=== PATIENT | female | born 1955 | race Caucasian/White ===

== ENCOUNTER → 2016-12-31 | Outpatient (CLI) | payer BC ==
[~2016-12-31] MED LIST: ESTR1TAB24 PO; LOVA40TA2 PO
--- OUTSIDE RECORDS SUMMARY | 2016-12-31 10:16 | XMS REPORT | Continuity of Care Document ---
Author Author [facility] Organization [facility] Address Unknown Phone Unavailable Allergies Active Description Code Type Severity Reaction Onset Reported/Identified Relationship to Patient Clinical Status Yes erythromycin base [id number] Drug Allergy Unknown N/V 12/05/2011 Medications Problems Date Dx Coded Attending Type Code Diagnosis Diagnosed By 12/13/2011 Ot 226 08/31/2012 Ot V12.72 08/31/2012 Ot V76.51 11/16/2014 LYNSEY ECKERT, ABDIAZIZ Russ Ot V76.12 12/02/2014 ABDIAZIZ MENON MD Ot V76.12 11/28/2015 Ot V76.12 11/28/2015 Ot V76.12 11/28/2015 Ot 241.0 11/28/2015 Ot 241.0 11/28/2015 Ot V72.63 11/28/2015 Ot V74.8 11/28/2015 Ot V72.84 11/28/2015 Ot V76.12 11/28/2015 LYNSEY ECKERT, ABDIAZIZ Russ Ot V76.12 11/28/2015 ABDIAZIZ MENON MD Ot V76.12 11/29/2015 FREDDY ECKERT, ROLLY Penaloza Ot Z12.31 12/14/2015 FREDDY ECKERT, ROLLY Penaloza Ot Z12.31 Procedures Results Encounters ACCT No. Visit Date/Time Discharge Status Pt. Type Provider Facility Loc./Unit Complaint [id number] 11/15/2014 09:09:00 2014 23:59:59 CLS Outpatient ABDIAZIZ MENON MD [facility] RAD [id number] 11/09/2013 08:38:00 2013 23:59:59 CLS Outpatient ABDIAZIZ MENON MD [facility] RAD [id number] 11/28/2015 08:50:00 ACT Outpatient ROLLY HAYES MD [facility] RAD [id number] 11/28/2015 08:50:00 Document Registration [id number] 11/02/2012 10:22:00 Document Registration [id number] 08/31/2012 06:41:00 Document Registration [id number] 08/27/2012 09:03:00 Document Registration [id number] 12/12/2011 05:58:00 Document Registration [id number] 12/05/2011 08:08:00 Document Registration [id number] 10/31/2011 10:10:00 Document Registration [id number] 09/10/2011 09:44:00 Document Registration [id number] 10/29/2010 09:21:00 Document Registration
--- NOTE | 2017-01-01 20:18 | Diagnostic Imaging Report ---
Bilateral screening mammogram The current study was also evaluated with a Computer Aided Detection (CAD) system. Indication: Screening. No current complaints stated on the questionnaire. COMPARISON: 11/28/15. FINDINGS: The breasts are composed of scattered fibroglandular densities. No mass, architectural distortion or suspicious cluster of calcifications seen. Allowing for technique and positional differences, no suspicious change is seen. IMPRESSION: No significant change. ACR BI-RADS Category 2: Benign findings. Result letter will be mailed to the patient. Note: At least 10% of breast cancer is not imaged by mammography. Dictated by: Dictated on workstation # [id number]
== END ==
LOC: RAD 10:12
PROVIDERS: ATTEND Family Medicine
DX: Z12.31 Encounter for screening mammogram for malignant neoplasm of breast (principal)
CPT/HCPCS: 77067

== ENCOUNTER → 2018-01-12 | Outpatient (CLI) | payer BC ==
--- NOTE | 2018-01-13 08:06 | Diagnostic Imaging Report ---
Digital mammogram bilateral screening. This study was compared to the prior exams of 12/31/2016, 11/28/2015 and 11/15/2014. At this time, there are no current complaints. The current study was also evaluated with a Computer Aided Detection (CAD) system. FINDINGS: There are scattered fibroglandular densities in both breasts which could obscure a lesion. Overall, there does not appear to have been any significant change when compared to the prior exam. No primary or secondary sign of malignancy is noted. IMPRESSION: There is no radiographic evidence for malignancy. ACR BI-RADS Category 1: Negative. Result letter will be mailed to the patient. Note: At least 10% of breast cancer is not imaged by mammography. Dictated by: Dictated on workstation # [id number]
== END ==
LOC: RAD 11:15
PROVIDERS: ATTEND Family Medicine
DX: Z12.31 Encounter for screening mammogram for malignant neoplasm of breast (principal)
CPT/HCPCS: 77067

== ENCOUNTER → 2018-07-22 | Outpatient (CLI) | payer BC ==
--- NOTE | 2018-07-22 14:08 | Diagnostic Imaging Report ---
PROCEDURE: US Thyroid. TECHNIQUE: Multiple real-time grayscale images were obtained of the thyroid in various projections. INDICATION: Thyroid nodules, followup. COMPARISON: Correlation is made with prior thyroid ultrasound from 01/12/2018. FINDINGS: The right lobe of the thyroid is surgically absent. Left lobe measures 4.8 x 1.5 x 1.4 cm. There are several circumscribed hypoechoic nodules within the left lobe of the thyroid. A nodule in the lower pole measures 6 mm x 3 mm x 6 mm, similar to prior exam. Second nodule mid to upper left lobe is approximately 3 mm x 4 mm. No dominant thyroid mass is seen. IMPRESSION: Subcentimeter left lobe thyroid nodules. No dominant thyroid mass is detected. Dictated by: Dictated on workstation # [id number]
== END ==
LOC: RAD 10:54
PROVIDERS: ATTEND Family Medicine
DX: E04.2 Nontoxic multinodular goiter (principal)
CPT/HCPCS: 76536

== ENCOUNTER → 2019-02-05 | Outpatient (CLI) | payer BC ==
--- NOTE | 2019-02-05 17:25 | Diagnostic Imaging Report ---
INDICATION: Routine screening. COMPARISON: Prior mammogram from 01/12/2018 and 12/31/2016. EXAMINATION: 2D and 3D bilateral screening mammography was performed with CAD. The current study was also evaluated with a Computer Aided Detection (CAD) system. FINDINGS: Scattered fibroglandular densities are identified, bilaterally. The parenchymal pattern is stable. No dominant mass or malignant appearing microcalcifications are seen. The axillae are unremarkable. IMPRESSION: No mammographic features suspicious for malignancy are identified. ACR BI-RADS Category 1: Negative. Result letter will be mailed to the patient. Note: At least 10% of breast cancer is not imaged by mammography. Dictated on workstation # [id number]
== END ==
LOC: RAD 08:03
PROVIDERS: ATTEND Family Medicine
DX: Z12.31 Encounter for screening mammogram for malignant neoplasm of breast (principal)
CPT/HCPCS: 77067

== ENCOUNTER → 2019-07-26 | Outpatient (CLI) | payer BC ==
--- NOTE | 2019-07-26 14:46 | Diagnostic Imaging Report ---
PROCEDURE: US Thyroid. TECHNIQUE: Multiple real-time grayscale images were obtained of the thyroid in various projections. INDICATION: Thyroid nodules, followup. Patient underwent right thyroidectomy in 2011. COMPARISON: Correlation is made with prior thyroid ultrasound from 07/22/2018. FINDINGS: The right thyroid lobe is surgically absent. Left lobe measures 4.7 x 1.7 x 1.5 cm. The isthmus is 4 mm in thickness. Lower pole hypoechoic nodule measures 6 mm x 5 mm, unchanged. Probable colloid cyst in the mid left lobe is seen measuring approximately 6 mm x 3 mm. Hyperechoic nodule in zcn-on-xkunc left lobe is approximately 3 mm x 4 mm, stable. No dominant mass is seen. IMPRESSION: Stable subcentimeter nodules in the left lobe of the thyroid when compared with examination one year earlier. No dominant thyroid mass is detected. Dictated by: Dictated on workstation # [id number]
== END ==
LOC: RAD 13:00
PROVIDERS: ATTEND Family Medicine
DX: E04.2 Nontoxic multinodular goiter (principal)
CPT/HCPCS: 76536

== ENCOUNTER → 2020-03-28 | Outpatient (CLI) | payer BC ==
--- NOTE | 2020-03-28 09:05 | Diagnostic Imaging Report ---
INDICATION: Postmenopausal screening for osteoporosis. COMPARISON: None FINDINGS: AP Spine L1-L4: [BMD (g/cm2): 1.221] [T-Score: 0.2] [Z-Score: 1.1] [BMD Previous: NA] [BMD % Change: NA] LT Hip Neck: [BMD (g/cm2): 0.880] [T-Score: -1.1] [Z-Score: -0.1] LT Hip Total: [BMD (g/cm2):0.899] [T-Score:-0.9] [Z-Score: -0.1] [BMD Previous: NA] [BMD % Change: NA] RT Hip Neck: [BMD (g/cm2):0.898] [T-Score:-1.0] [Z-Score:0.0] RT Hip Total: [BMD (g/cm2):0.958] [T-score:-0.4] [Z-Score:0.3] [BMD Previous:NA] [BMD % Change:NA] *Indicates significant change from prior examination based on 95% confidence level. World Health Organization criteria for BMD interpretation classify patients as Normal (T-score at or above -1.0), Osteopenic (T-score between -1.0 and -2.5) or Osteoporotic (T-score at or below -2.5). LIMITATIONS AND MODIFICATION: None. FRACTURE RISK (FRAX SCORE): The ten year probability of (%): Major Osteoporotic Fracture: [NA] Hip Fracture: [NA] IMPRESSION: 1. Normal bone mineral density. 2. Baseline examination. 3. See below National Osteoporosis Foundation guidelines on when to potentially initiate pharmacologic therapy. Based on the National Osteoporosis Foundation Guidelines, pharmacologic treatment should be initiated in any of the following, unless clinical conditions suggest otherwise: * Any patient with prior fragility fracture of the hip or vertebrae. A spine fracture indicates 5X risk for subsequent spine fracture and 2X risk for subsequent hip fracture. * Osteoporosis (T-score <-2.5). * Postmenopausal women and men age 50 and older with low bone mass/osteopenia (T-score between -1.0 and -2.5) by DXA and 10-year major osteoporotic fracture greater than 20% or a 10-year probability of hip fracture greater than 3%. These fracture risks are supplied above in the FRAX score, if applicable. * Clinician judgement and/or patient preferences may indicate treatment for people with 10-year fracture probabilities above or below these levels. Dictated by: Dictated on workstation # [id number]
--- NOTE | 2020-03-28 13:04 | Diagnostic Imaging Report ---
INDICATION: Routine screening. COMPARISON: 02/05/2019 and 01/12/2018. TECHNIQUE: 2D and 3D bilateral screening mammography was performed with CAD. FINDINGS: Both breasts are heterogeneously dense, limiting the sensitivity of mammography. The parenchymal pattern appears to be fairly stable. No discrete mass or malignant appearing microcalcifications are seen. The axillae are unremarkable. IMPRESSION: No mammographic features suspicious for malignancy are identified. ACR BI-RADS Category 1: Negative. Result letter will be mailed to the patient. Note: At least 10% of breast cancer is not imaged by mammography. Dictated by: Dictated on workstation # [id number]
== END ==
LOC: RAD 08:20
PROVIDERS: ATTEND Family Medicine
DX: Z12.31 Encounter for screening mammogram for malignant neoplasm of breast (principal); Z13.820 Encounter for screening for osteoporosis; E55.9 Vitamin D deficiency, unspecified; Z78.0 Asymptomatic menopausal state
CPT/HCPCS: 77063; 77067; 77080

== ENCOUNTER → 2021-04-04 | Outpatient (CLI) | payer BC ==
--- NOTE | 2021-04-04 14:32 | Diagnostic Imaging Report ---
Indication: Routine screening. Comparison is made with prior mammogram from 03/28/2020 and 02/05/2019. 2-D and 3-D bilateral screening mammography was performed with CAD. Scattered fibroglandular densities are identified bilaterally. The parenchymal pattern is stable. No mass or malignant appearing microcalcifications are seen. Axillae are unremarkable. IMPRESSION: BI-RADS Category 1 No mammographic features suspicious for malignancy are identified. ACR BI-RADS Category 1: Negative. Result letter will be mailed to the patient. Note: At least 10% of breast cancer is not imaged by mammography. Dictated by: Dictated on workstation # [id number]
== END ==
LOC: RAD 09:50
PROVIDERS: ATTEND Family Medicine
DX: Z12.31 Encounter for screening mammogram for malignant neoplasm of breast (principal)
CPT/HCPCS: 77063; 77067

== ENCOUNTER → 2021-08-02 | Outpatient (CLI) | payer BC ==
--- NOTE | 2021-08-02 13:16 | Diagnostic Imaging Report ---
PROCEDURE: US Thyroid. TECHNIQUE: Multiple real-time grayscale images were obtained of the thyroid in various projections. INDICATION: Thyroid nodules, follow-up. Correlation is made with prior thyroid ultrasound from 07/26/2019. The right lobe is surgically absent. Left lobe measures 5.0 x 1.4 x 1.5 cm. Several hypoechoic nodules in the left lobe are again noted. Hypoechoic nodule lower pole left lobes approximately 6 mm x 3 mm x 5 mm. Probable cystic nodule mid portion approximately 6 mm x 5 mm. The hyperechoic nodule in the upper pole is approximately 4 mm x 6 mm. No dominant mass is identified. IMPRESSION: Subcentimeter left lobe thyroid nodules, similar in appearance to the examination from 2 years earlier. No dominant thyroid mass is detected. Dictated by: Dictated on workstation # [id number]
== END ==
LOC: RAD 10:58
PROVIDERS: ATTEND Family Medicine
DX: E04.1 Nontoxic single thyroid nodule (principal)
CPT/HCPCS: 76536

== ENCOUNTER → 2022-04-09 | Outpatient (CLI) | payer BC, MEDICARE ==
--- NOTE | 2022-04-09 11:33 | Diagnostic Imaging Report ---
INDICATION: Postmenopausal screening COMPARISON: 03/28/2020 FINDINGS: AP Spine L1-L4: [BMD (g/cm2): 1.208] [T-Score: 0.1] [Z-Score: 1.3] [BMD Previous: 1.221] [BMD % Change: -1.0] LT Hip Neck: [BMD (g/cm2): 0.872] [T-Score: -1.2] [Z-Score: 0.0] LT Hip Total: [BMD (g/cm2):0.879] [T-Score:-1.0] [Z-Score: -0.1] [BMD Previous: 0.899] [BMD % Change: -2.2] RT Hip Neck: [BMD (g/cm2):0.876] [T-Score:-1.2] [Z-Score:0.0] RT Hip Total: [BMD (g/cm2):0.938] [T-score:-0.6] [Z-Score:0.3] [BMD Previous:0.958] [BMD % Change:-2.1] *Indicates significant change from prior examination based on 95% confidence level. World Health Organization criteria for BMD interpretation classify patients as Normal (T-score at or above -1.0), Osteopenic (T-score between -1.0 and -2.5) or Osteoporotic (T-score at or below -2.5). LIMITATIONS AND MODIFICATION: None. FRACTURE RISK (FRAX SCORE): The ten year probability of (%): Major Osteoporotic Fracture: [8.32] Hip Fracture: [0.7] IMPRESSION: 1. Osteopenia (Low bone mass). 2. No significant change in bone mineral density since prior examination. 3. See below National Osteoporosis Foundation guidelines on when to potentially initiate pharmacologic therapy. Based on the National Osteoporosis Foundation Guidelines, pharmacologic treatment should be initiated in any of the following, unless clinical conditions suggest otherwise: * Any patient with prior fragility fracture of the hip or vertebrae. A spine fracture indicates 5X risk for subsequent spine fracture and 2X risk for subsequent hip fracture. * Osteoporosis (T-score <-2.5). * Postmenopausal women and men age 50 and older with low bone mass/osteopenia (T-score between -1.0 and -2.5) by DXA and 10-year major osteoporotic fracture greater than 20% or a 10-year probability of hip fracture greater than 3%. These fracture risks are supplied above in the FRAX score, if applicable. * Clinician judgement and/or patient preferences may indicate treatment for people with 10-year fracture probabilities above or below these levels. Dictated by: Dictated on workstation # [id number]
--- NOTE | 2022-04-09 13:39 | Diagnostic Imaging Report ---
INDICATION: Routine screening. COMPARISON: 04/04/2021 and 03/28/2020. TECHNIQUE: 2D and 3D bilateral screening mammography was performed with CAD. FINDINGS: Scattered fibroglandular densities are identified bilaterally. The parenchymal pattern is stable. No mass or malignant-appearing microcalcifications are seen. The axillae are unremarkable. IMPRESSION: No mammographic features suspicious for malignancy are identified. ACR BI-RADS Category 1: Negative. Result letter will be mailed to the patient. Note: At least 10% of breast cancer is not imaged by mammography. Dictated by: Dictated on workstation # [id number]
== END ==
LOC: RAD 10:15
PROVIDERS: ATTEND Family Medicine
DX: Z12.31 Encounter for screening mammogram for malignant neoplasm of breast (principal); M85.88 Other specified disorders of bone density and structure, other site; Z78.0 Asymptomatic menopausal state
CPT/HCPCS: 77063; 77067; 77080

== ENCOUNTER 2023-04-09 06:27 | Outpatient (CLI) | payer MEDICARE ==
[~2023-04-09] VITALS: Ht 170.2 cm; Wt 80.9 kg
[2023-04-11] MEDS ORDERED: ATOR10TA66 PO (12:25)
== END 2023-04-11 12:30 | disposition home or self-care (01) ==
LOC: PREOP 06:27
PROVIDERS: ATTEND Internal Medicine
DX: Z01.818 Encounter for other preprocedural examination (principal)

== ENCOUNTER → 2023-04-10 | Outpatient (CLI) | payer MEDICARE, OTHER ==
[~2023-04-10] MED LIST changes: +ATOR10TA66 PO
--- NOTE | 2023-04-10 13:45 | Diagnostic Imaging Report ---
Indication: Routine screening. Comparison is made with prior mammograms 04/09/2022 and 04/04/2021. 2-D and 3-D bilateral screening mammography was performed with CAD. Scattered fibroglandular densities are identified bilaterally. The parenchymal pattern is stable. No mass or malignant-appearing microcalcifications are seen. Axillae are unremarkable. IMPRESSION: BI-RADS Category 1 No mammographic features suspicious for malignancy are identified. ACR BI-RADS Category 1: Negative. Result letter will be mailed to the patient. Note: At least 10% of breast cancer is not imaged by mammography. Dictated by: Dictated on workstation # [id number]
== END ==
LOC: RAD 09:47
PROVIDERS: ATTEND Family Medicine
DX: Z12.31 Encounter for screening mammogram for malignant neoplasm of breast (principal)
CPT/HCPCS: 77063; 77067

== ENCOUNTER 2023-04-18 09:31 | Day surgery (SDC) | payer MEDICARE, OTHER ==
--- NOTE | 2023-04-04 09:18 | HISTORY AND PHYSICAL ---
COLONOSCOPY HISTORY AND PHYSICAL HISTORY OF PRESENT ILLNESS: The patient is a 68-year-old white female referred by Dr. Britton for screening colonoscopy. She reports 1 other colonoscopy over 10 years ago. She thinks she may have had one small polyp removed. She did not have any difficulty with her procedure that she recalls. She is not aware of any family history of colon cancer. She denies bright red blood per rectum, melena, change in bowel habit or abdominal pain. For this reason, she is deemed to be of average risk. PAST MEDICAL HISTORY: Significant for hyperlipidemia and osteopenia. Her only medication is atorvastatin 10 mg daily. PAST SURGICAL HISTORY: She had hysterectomy and a partial thyroidectomy involving the right lobe in the past. The hysterectomy was in 1999 and thyroidectomy was in 12/2011. SOCIAL HISTORY: She is , has 2 children. 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 No past smoking history and occasional small volume alcohol intake. FAMILY HISTORY: Father of complications of myocardial infarction and had hyperlipidemia. Mother had a history of hyperlipidemia and she has one sister with history of hyperlipidemia. Either mother or sister had known vascular disease. REVIEW OF SYSTEMS: CONSTITUTIONAL: Denies night sweats, chills, fever or change in weight. GASTROINTESTINAL: As noted in the HPI. PULMONARY: Denies cough, wheezing or shortness of breath. CARDIOVASCULAR: She has had a couple episodes in the past of heart racing with some chest tightness. PHYSICAL EXAMINATION: GENERAL: Reveals a white female, appeared to be in no acute distress. VITAL SIGNS: Blood pressure 120/80, weight 178. HEENT: Unremarkable. CHEST: Clear. CARDIOVASCULAR: Reveals regular rate and rhythm without murmur, S3, or S4. ABDOMEN: Soft, supple without mass, organomegaly, or tenderness. EXTREMITIES: Revealed no cyanosis, clubbing or edema. ASSESSMENT AND PLAN: The patient is being set up for screening colonoscopy deemed to be of average risk. Prep instructions were given and questions were answered. I thank you for the referral of this pleasant lady. Job ID: [id number] DocumentID: [id number] Dictated Date: 03/27/2023 16:20:58 Schedule Manager Date: 03/27/2023 16:38:00 Dictated By: LATIA GUARDADO MD
[~2023-04-18] VITALS: Ht 170 cm; Wt 80.9 kg
[2023-04-18] MEDS ORDERED: LACTATED RINGERS 1,000 ML IV STA (09:39)
[2023-04-18 09:48] VITALS: BP 142/68
[2023-04-18] MEDS ORDERED: PROPOFOL INJECTION 50 ML IV ONE (10:29)
[2023-04-18] MEDS ORDERED: MIDAZOLAM 2 MG/2 ML (VERSED) VIAL ONE (10:29)
--- NOTE | 2023-04-18 10:29 | Pre-Op Note & Conscious Sedat ---
Pre-Operative Progress Note Date H&P Reviewed: Apr 18, 2023 Time H&P Reviewed: 10:28 History & Physical: H&P Reviewed, Patient Examed, No changes noted Pre-Op Diagnosis: screening Moderate Sedation PreProcedure ASA Score 2 Airway Lungs Heart ASA score ASA 1: a normal healthy patient ASA 2: a patient with a mild systemic disease (mid diabetes, controlled hypertension, obesity ASA 3: a patient with a severe systemic disease that limits activity (angina, COPD, prior Myocardial infarction) ASA 4: a patient with an incapacitating disease that is a constant threat to life (CHF, renal failure) ASA 5: a moribund patient not expected to survive 24 hrs. (ruptured aneurysm) ASA 6: a declared brain- patient whose organs are being harvested. For emergent operations, add the letter E after the classification Mallampati Classification Grade 2 Sedation Plan Analgesia, Amnesia, Plan communicated to team members, Discussed options with patient/fam, Discussed risks with patient/fam The patient is an appropriate candidate to undergo the planned procedure, sedation, and anesthesia. The patient immediately re-assessed prior to indication. LATIA GUARDADO MD Apr 18, 2023 10:29
[2023-04-18 10:50] VITALS: BP 161/73
--- NOTE | 2023-04-18 10:52 | Progress Note-Post Operative ---
Post-Procedure Note Physician (s)/Building Energy Retrofit Technician (s) Physician LATIA GUARDADO MD Pre-Procedure Diagnosis Pre-Procedure Diagnosis: screening Post-Procedure Diagnosis Post-operative diagnosis: Prior to undergoing colonoscopy digital rectal evaluation was performed. Anal sphincter tone was normal and the perianal reflexes intact. No abnormalities noted on digital inspection anal canal or distal rectal vault. The colonoscope was inserted into the rectum and under direct visualization advanced to the cecum. The cecum was identified by identification of the ileocecal valve and the cecal strap. Photographic documentation was obtained. Quality the prep was good. Careful inspection was made as the colonoscope was withdrawn. Findings: There are no evidence for internal or external hemorrhoids there was some redundancy to the perianal skin folds. The rectum sigmoid colon descending colon splenic flexure were unremarkable. Present the proximal transverse colon was a diminutive 3 mm sessile polyp was photographed and biopsied and ablated with no blood loss. The hepatic flexure ascending colon and cecum were unremarkable. Assessment 1 diminutive polyp was removed from the proximal transverse colon with an otherwise normal colonoscopy to the cecum under good prep conditions. Would advocate consideration for repeat screening colonoscopy in 10 years. I thank you for the furl this pleasant lady sincerely, Latia Guardado MD. CC: LATIA Cervantes MD, MD Apr 18, 2023 10:52
[2023-04-18 10:55] VITALS: BP 133/69
[2023-04-18 11:00] VITALS: BP 117/65
--- NOTE | 2023-04-18 11:15 | Anesthesia-General Post-Op ---
MAC Patient Condition Mental Status/LOC: Same as Preop Cardiovascular: Satisfactory Nausea/Vomiting: Absent Respiratory: Satisfactory Pain: Controlled Complications: Absent Post Op Complications Complications None Follow Up Care/Instructions Patient Instructions None needed. Anesthesiology Discharge Order Discharge Order Patient is doing well, no complaints, stable vital signs, no apparent adverse anesthesia problems. No complications reported per nursing. MIKI HOLGUIN CRNA Apr 18, 2023 11:15
[2023-04-18 11:35] VITALS: BP 117/65
== END 2023-04-18 12:18 | disposition home or self-care (01) ==
LOC: ENDO 09:31
PROVIDERS: ATTEND Internal Medicine
DX: Z12.11 Encounter for screening for malignant neoplasm of colon (principal); D12.3 Benign neoplasm of transverse colon; E78.5 Hyperlipidemia, unspecified; Z79.899 Other long term (current) drug therapy